=== PATIENT | male | born 1985 | race Caucasian/White ===

== ENCOUNTER 2024-04-21 12:21 | Emergency (ER) | payer MEDICAID ==
[~2024-04-21] VITALS: Ht 170.2 cm; Wt 78.0 kg
[2024-04-21 12:26] VITALS: O2SAT 99
[2024-04-21 12:32] VITALS: BP 106/65; PULSE 66; RESP 14; TEMP 97.7; O2SAT 97
[2024-04-21] MEDS ORDERED: METH-372 MT (12:58)
== END 2024-04-21 13:07 | disposition home or self-care (01) ==
LOC: ER 12:21
DX: Z76.0 Encounter for issue of repeat prescription (principal)
CPT/HCPCS: 99281